=== PATIENT | female | born 1930 | race Hispanic/Latino ===

== ENCOUNTER 2018-08-22 11:31 | Emergency (ER) | payer MEDICARE ==
[2018-08-22 11:32] VITALS: BMI 21.7
--- NOTE | 2018-08-22 12:25 | ED PDOC ---
Arrival/HPI - General Historian: Patient - History of Present Illness Narrative History of Present Illness (Text): 08/22/18 16:11 88yo female with pmhx of GERD, dizziness, hypertension, CHF, Afib present with complaint of b/l leg pain and weakness. Patient reports falling earlier today. states she was dizzy and her legs was weak, so she fell. Notes previous history of fall last week. states she has been getting pain radiating from her thigh to her lower legs for over 3months now. Feels that the pain and weakness she have on her legs is causing her to fell. States she have appointment with her PMD on Friday, but came to ED today to be evaluated for her legs pain/weakness. She denies any acute injury/pain from the injury today. Denies hitting her head anywhere, LOC, visual changes, chest pain SOB, nausea, vomiting, focal weakness, any other complaint. <Janie Mckay - Last Filed: 08/22/18 16:25> <Liborio Joseph - Last Filed: 08/22/18 17:36> - General Chief Complaint: Lower Extremity Problem/Injury Time Seen by Provider: 08/22/18 11:58 Past Medical History - Provider Review Nursing Documentation Reviewed: Yes - Infectious Disease Hx of Infectious Diseases: None - Tetanus Immunization Tetanus Immunization: Up to Date - Cardiac Hx Cardiac Disorders: Yes Hx Cardiac Arrhythmia: Yes Hx Congestive Heart Failure: Yes Hx Hypertension: Yes - Pulmonary Hx Respiratory Disorders: No - Neurological Hx Neurological Disorder: Yes Hx Dizziness: Yes - HEENT Hx HEENT Disorder: Yes (WEARS RX GLASSES,LEFT EYE SURGERY) - Renal Hx Renal Disorder: No - Endocrine/Metabolic Hx Endocrine Disorders: No - Hematological/Oncological Hx Blood Disorders: No - Integumentary Hx Dermatological Disorder: No - Musculoskeletal/Rheumatological Hx Musculoskeletal Disorders: Yes Hx Falls: Yes - Gastrointestinal Hx Gastrointestinal Disorders: Yes Hx Gastroesophageal Reflux: Yes - Genitourinary/Gynecological Hx Genitourinary Disorders: No - Psychiatric Hx Psychophysiologic Disorder: Yes Hx Anxiety: Yes Hx Substance Use: No - Surgical History Hx Appendectomy: Yes Hx Cholecystectomy: Yes Hx Hysterectomy: Yes Hx Orthopedic Surgery: Yes (rt hip replacement) Hx Valve Replacement: Yes (aortic valve) - Anesthesia Hx Anesthesia: Yes Hx Anesthesia Reactions: No Hx Malignant Hyperthermia: No - Suicidal Assessment Feels Threatened In Home Enviroment: No <Diru,Happiness A - Last Filed: 08/22/18 16:25> Family/Social History - Physician Review Nursing Documentation Reviewed: Yes Family/Social History: Unknown Family HX Smoking Status: Never Smoked Hx Alcohol Use: No Hx Substance Use: No Hx Substance Use Treatment: No <Janie Mckay A - Last Filed: 08/22/18 16:25> Allergies/Home Meds <Janie Mckay A - Last Filed: 08/22/18 16:25> <TolericoAlexisLiborio - Last Filed: 08/22/18 17:36> Allergies/Adverse Reactions: Allergies iodine Allergy (Verified 08/22/18 11:49) RASH IV contrast Allergy (Uncoded 08/22/18 11:49) RASH Review of Systems - Physician Review All systems were reviewed & negative as marked: Yes - Review of Systems Constitutional: Normal Eyes: Normal ENT: Normal Respiratory: Normal Cardiovascular: Normal Gastrointestinal: Normal Genitourinary Female: Normal Musculoskeletal: Arthralgias (B/L leg pain) Skin: Normal Neurological: Dizziness Endocrine: Normal Hemo/Lymphatic: Normal Psychiatric: Normal <Janie Mckay A - Last Filed: 08/22/18 16:25> Physical Exam Vital Signs Reviewed: Yes Vital Signs Temp Pulse Resp BP Pulse Ox 08/22/18 11:50 98.9 F 93 H 16 155/84 H 97 Temperature: Afebrile Blood Pressure: Normal Pulse: Regular Respiratory Rate: Normal Appearance: Positive for: Well-Appearing, Non-Toxic, Comfortable Pain Distress: None Mental Status: Positive for: Alert and Oriented X 3 Finger Stick Blood Glucose: 105 - Systems Exam Head: Present: Atraumatic, Normocephalic Pupils: Present: PERRL Extroacular Muscles: Present: EOMI Conjunctiva: Present: Normal Mouth: Present: Moist Mucous Membranes Neck: Present: Normal Range of Motion Respiratory/Chest: Present: Clear to Auscultation, Good Air Exchange. No: Respiratory Distress, Accessory Muscle Use Cardiovascular: Present: Regular Rate and Rhythm, Normal S1, S2. No: Murmurs Abdomen: No: Tenderness, Distention, Peritoneal Signs Back: Present: Normal Inspection Upper Extremity: Present: Normal Inspection. No: Cyanosis, Edema Lower Extremity: Present: Normal Inspection, NORMAL PULSES, Normal ROM, Neurovascularly Intact. No: Edema, CALF TENDERNESS, Tori's Sign, Tenderness, Swelling, Erythema, Temperature Abnormalties Neurological: Present: GCS=15, CN II-XII Intact, Speech Normal, Motor Func Grossly Intact, Normal Sensory Function, Normal Cerebellar Funct, Norm Deep Tendon Reflexes, Gait Normal, Memory Normal, Normal 2Pt Descrimination, Other (No focal neurological deficit) Skin: Present: Warm, Dry, Normal Color. No: Rashes Psychiatric: Present: Alert, Oriented x 3, Normal Insight, Normal Concentration <Diru,Happiness A - Last Filed: 08/22/18 16:25> Vital Signs Temp Pulse Resp BP Pulse Ox 08/22/18 16:24 98.2 F 78 18 141/95 H 98 08/22/18 15:14 86 16 147/84 98 08/22/18 13:30 88 16 146/80 95 08/22/18 11:50 98.9 F 93 H 16 155/84 H 97 <Alexis Josephoper - Last Filed: 08/22/18 17:36> Medical Decision Making ED Course and Treatment: 08/22/18 16:35 88yo female who present with complaint of b/l lower leg pain/weakness x months. Labs was ordered and reviewed, all wnl EKG NSR @ 81bpm. NSTEMI Head CT - MPRESSION: No acute intracranial pathology. Age-related changes. No significant interval change. Doppler Us - Negative for DVT b/l PT was ambulatory in ED. She was neurologically intact. She was offered admission for OBS, but she declined. Case was DW Dr. Gambino, he also spoke with the pt and her son. she insisted that she don't wasn't to stay in the hospital. States she have appointment with Dr. Gambino and will see him then. She was stable for DC and was Dc home. - RAD Interpretation Radiology Orders: 08/22/18 11:59 HEAD W/O CONTRAST [CT] Stat 08/22/18 12:00 CHEST PORTABLE [RAD] Stat <Diru,Happiness A - Last Filed: 08/22/18 16:25> - Lab Interpretations Lab Results: 08/22/18 12:15 08/22/18 12:15 Lab Results 08/22/18 14:07: Urine Color Yellow, Urine Appearance Clear, Urine pH 6.0, Ur Specific [place] <= 1.005, Urine Protein Negative, Urine Glucose (UA) Negative, Urine Ketones Negative, Urine Blood Small H, Urine Nitrate Negative, Urine Bilirubin Negative, Urine Urobilinogen 0.2, Ur Leukocyte Esterase Negative, Urine RBC 0 - 2, Urine WBC 1 - 3, Ur Epithelial Cells 1 - 3, Urine Bacteria Few 08/22/18 12:15: Sodium 136, Potassium 4.9, Chloride 100, Carbon Dioxide 28, Anion Gap 13, BUN 20, Creatinine 1.1, Est GFR ( Amer) 57, Est GFR (Non-Af Amer) 47, Random Glucose 97, Calcium 9.7, Phosphorus 4.3, Magnesium 2.1, Total Bilirubin 0.4, AST 28, ALT 21, Alkaline Phosphatase 96, Lactate Dehydrogenase 585, Total Creatine Kinase 64, Troponin I < 0.01, Total Protein 7.7, Albumin 4.5, Globulin 3.1, Albumin/Globulin Ratio 1.4 08/22/18 12:15: PT 12.1, INR 1.05, APTT 30.8 08/22/18 12:15: WBC 8.6, RBC 3.90, Hgb 11.9 L, Hct 37.4, MCV 95.9, MCH 30.5, MCHC 31.8, RDW 13.6, Plt Count 222, MPV 10.6, Gran % 74.1 H, Lymph % (Auto) 17.1 L, Kings % (Auto) 7.6 H, Eos % (Auto) 0.7 L, Baso % (Auto) 0.5, Gran # 6.37, Lymph # (Auto) 1.5, Kings # (Auto) 0.7 H, Eos # (Auto) 0.1, Baso # (Auto) 0.04 - RAD Interpretation Radiology Orders: 08/22/18 11:59 HEAD W/O CONTRAST [CT] Stat 08/22/18 12:00 CHEST PORTABLE [RAD] Stat 08/22/18 13:51 DUPLEX LOWER EXTRM VEIN BILAT [US] Stat <Liborio Joseph - Last Filed: 08/22/18 17:36> - PA / LEATHER [employer]ISHER / Resident Statement /DO has reviewed & agrees with the documentation as recorded. <Liborio Joseph - Last Filed: 08/22/18 17:36> Disposition/Present on Arrival - Present on Arrival Any Indicators Present on Arrival: No History of DVT/PE: No History of Uncontrolled Diabetes: No Urinary Catheter: No History of Decub. Ulcer: No History Surgical Site Infection Following: None - Disposition Have Diagnosis and Disposition been Completed?: Yes Disposition Time: 16:15 Patient Plan: Discharge <Janie Mckay - Last Filed: 08/22/18 16:25> <Liborio Joseph - Last Filed: 08/22/18 17:36> - Disposition Diagnosis: Leg pain, Dizziness Disposition: HOME/ ROUTINE Condition: STABLE Discharge Instructions (ExitCare): Muscle and Bone Pain (DC), Dizziness, Nonvertigo, (DC) Additional Instructions: Follow up with your Doctor Return to ED for any new or worsening symptoms Referrals: Elsa Gambino MD [Family Provider] - Follow up with primary Forms: [employer] (Czech)
[2018-08-22 12:47] LABS: BASO # 0.04 K/mm3 (0.0-2.0); BASO % 0.5 % (0.0-3.0); EOS # 0.1 (0.0-0.7); EOS % 0.7 % (1.5-5.0); GRAN # 6.37 (1.4-6.5); GRAN % 74.1 % (50.0-68.0); HEMOGLOBIN 11.9 g/dL (12.0-16.0); LYMPH # 1.5 (1.2-3.4); LYMPH % 17.1 % (22.0-35.0); MEAN CELL VOLUME 95.9 fl (80.0-105.0); MEAN CORPUSCULAR HEMOGLOBIN 30.5 pg (25.0-35.0); MEAN CORPUSCULAR HGB CONC 31.8 g/dl (31.0-37.0); MEAN PLATELET VOLUME 10.6 fl (7.0-11.0); MONO # 0.7 (0.1-0.6); MONO % 7.6 % (1.0-6.0); RBC 3.9 10^6/uL (3.5-6.1); RED CELL DISTRIBUTION WIDTH 13.6 % (11.5-14.5); WHITE BLOOD COUNT 8.6 10^3/ul (4.5-11.0)
[2018-08-22 12:50] LABS: ALB/GLOB RATIO 1.4 (1.1-1.8); ALBUMIN 4.5 g/dL (3.0-4.8); ALT/SGPT 21 U/L (7-56); AST/SGOT 28 U/L (14-36); BLOOD UREA NITROGEN 20 mg/dL (7-21); CALCIUM 9.7 mg/dL (8.4-10.5); GFR NON-AFRICAN AMERICAN 47
[2018-08-22 12:52] LABS: INR 1.05; PARTIAL THROMBOPLASTIN TIME 30.8 Seconds (25.1-36.5); PROTHROMBIN TIME 12.1 SECONDS (9.4-12.5)
[2018-08-22 13:02] LABS: TROPONIN I < 0.01 ng/mL
--- NOTE | 2018-08-22 13:03 | CT ---
Date of service: 08/22/2018 PROCEDURE: CT HEAD WITHOUT CONTRAST. HISTORY: dizziness COMPARISON: CT head dated 09/30/2016 TECHNIQUE: Axial computed tomography images were obtained through the head/brain without intravenous contrast. Radiation dose: Total exam DLP = 816.6 mGy-cm. This CT exam was performed using one or more of the following dose reduction techniques: Automated exposure control, adjustment of the mA and/or kV according to patient size, and/or use of iterative reconstruction technique. FINDINGS: HEMORRHAGE: No intracranial hemorrhage. BRAIN: No mass effect or edema. Atrophy. Chronic microvascular ischemic changes. VENTRICLES: Unremarkable. No hydrocephalus. CALVARIUM: Unremarkable. PARANASAL SINUSES: Unremarkable as visualized. No significant inflammatory changes. MASTOID AIR CELLS: Unremarkable as visualized. No inflammatory changes. OTHER FINDINGS: None. IMPRESSION: No acute intracranial pathology. Age-related changes. No significant interval change.
--- NOTE | 2018-08-22 13:34 | RAD ---
Date of service: 08/22/2018 HISTORY: for admission COMPARISON: Chest radiograph dated 09/25/2015. FINDINGS: LUNGS: No active pulmonary disease. PLEURA: No significant pleural effusion identified, no pneumothorax apparent. CARDIOVASCULAR: Prior sternotomy with sternal wires and surgical clips redemonstrated. Atherosclerotic aortic calcifications. Cardiomediastinal silhouette within normal limits. OSSEOUS STRUCTURES: Unchanged. VISUALIZED UPPER ABDOMEN: Normal. OTHER FINDINGS: None. IMPRESSION: Manifestations of COPD. No active disease.
[2018-08-22 15:11] LABS: URINE BILIRUBIN NEGATIVE (NEGATIVE); URINE BLOOD SMALL (NEGATIVE); URINE GLUCOSE (UA) NEGATIVE (NEGATIVE); URINE LEUKOCYTE ESTERASE NEGATIVE Leu/uL (NEGATIVE); URINE PROTEIN NEGATIVE mg/dL (<30 mg/dL); URINE UROBILINOGEN 0.2 E.U./dL (<1 E.U./dL)
[2018-08-22 15:15] VITALS: O2SAT 98
[2018-08-22 15:27] LABS: URINE APPEARANCE CLEAR (CLEAR); URINE COLOR YELLOW (YELLOW)
[2018-08-22 15:34] LABS: URINE BACTERIA FEW (NEG); URINE RBC 0 - 2 /hpf (0-2)
[2018-08-22 16:24] VITALS: BP 141/95; PULSE 78; RESP 18; TEMP 98.2
--- NOTE | 2018-08-23 09:04 | CARD ---
APPROVED REPORT Date of service: 08/22/2018 EKG Measurement Heart [id number] <Conclusion> Normal sinus rhythm Normal ECG No change except no PVCs now, c/w ECG 01/20/17
--- NOTE | 2018-08-23 15:50 | US ---
HISTORY: Leg pain and swelling. Evaluate for DVT PHYSICIAN(S): Dc Davila MD. TECHNIQUE: Duplex sonography and color-flow Doppler with graded compression were used to evaluate the deep venous systems of both lower extremities. FINDINGS: The visualized deep venous systems of both lower extremities are sonographically normal and compressible. Normal wave forms and augmentation are seen. There is no sonographic evidence for deep venous thrombosis in the visualized segments of both lower extremities. IMPRESSION: No sonographic evidence for deep venous thrombosis in the visualized segments of both lower extremities.
== END 2018-08-22 16:24 | disposition home or self-care (01) ==
LOC: ED 11:31
DX: M79.605 Pain in left leg (principal); M79.604 Pain in right leg; R42 Dizziness and giddiness; I11.0 Hypertensive heart disease with heart failure; I48.91 Unspecified atrial fibrillation; I50.9 Heart failure, unspecified; Z95.2 Presence of prosthetic heart valve; Z96.641 Presence of right artificial hip joint

== ENCOUNTER 2018-08-25 08:32 | Inpatient (IN) | payer MEDICARE ==
[2018-08-25 08:44] VITALS: BMI 20.7
--- NOTE | 2018-08-25 08:58 | ED PDOC ---
Arrival/HPI - General Chief Complaint: Lower Extremity Problem/Injury Time Seen by Provider: 08/25/18 08:39 Historian: Patient - History of Present Illness Narrative History of Present Illness (Text): 08/25/18 08:42 88 year old female, whose past medical history includes GERD, dizziness, hypertension, CHF, and Afib, who presents to the Emergency department complaining of dizzy spells on and off for about 1 week and a half, and intermittent bilateral leg pain for about 3 months with frequent falls. Patient was seen in emergency department 3 days ago on 08/22/18, had negative CT done and negative doppler done, with normal blood/urine testing. Patient refused admission during that visit [address] Dr. Gambino yesterday. Spoke to Dr. Gambino this morning, who was just requesting blood work and left knee X- Ray. Never smoker, occasional beer. Time/Duration: < week (dizzy spells on and off for about 1 week and a half), < month (intermittent bilateral leg pain for about 3 months, with frequent falls) Symptom Onset: Sudden Symptom Course: Unchanged Activities at Onset: Light Associated Symptoms (Text): 08/25/18 09:09 Seen in the emergency department 3 days ago with the complaint of dizziness occurring for approximately 10 days. She complains of bilateral lower extremity pain for several months. She had a negative workup in the emergency department 3 days ago including Doppler and CT scan of the brain. She was seen by her PMD Dr. Gambino yesterday and directed to the emergency department for full admission today with the plan of placing her in rehabilitation. Past Medical History - Provider Review Nursing Documentation Reviewed: Yes - Infectious Disease Hx of Infectious Diseases: None - Tetanus Immunization Tetanus Immunization: Up to Date - Cardiac Hx Cardiac Disorders: Yes Hx Cardiac Arrhythmia: Yes Hx Congestive Heart Failure: Yes Hx Hypertension: Yes - Pulmonary Hx Respiratory Disorders: No - Neurological Hx Neurological Disorder: Yes Hx Dizziness: Yes - HEENT Hx HEENT Disorder: Yes (WEARS RX GLASSES,LEFT EYE SURGERY) - Renal Hx Renal Disorder: No - Endocrine/Metabolic Hx Endocrine Disorders: No - Hematological/Oncological Hx Blood Disorders: No - Integumentary Hx Dermatological Disorder: No - Musculoskeletal/Rheumatological Hx Musculoskeletal Disorders: Yes Hx Falls: Yes - Gastrointestinal Hx Gastrointestinal Disorders: Yes Hx Gastroesophageal Reflux: Yes - Genitourinary/Gynecological Hx Genitourinary Disorders: No - Psychiatric Hx Psychophysiologic Disorder: Yes Hx Anxiety: Yes Hx Substance Use: No - Surgical History Hx Appendectomy: Yes Hx Cholecystectomy: Yes Hx Hysterectomy: Yes Hx Open Heart Surgery: Yes Hx Orthopedic Surgery: Yes (rt hip replacement) Hx Valve Replacement: Yes (aortic valve) - Anesthesia Hx Anesthesia: Yes Hx Anesthesia Reactions: No Hx Malignant Hyperthermia: No - Suicidal Assessment Feels Threatened In Home Enviroment: No Family/Social History - Physician Review Nursing Documentation Reviewed: Yes Family/Social History: Unknown Family HX Smoking Status: Never Smoked Hx Alcohol Use: No Hx Substance Use: No Hx Substance Use Treatment: No Allergies/Home Meds Allergies/Adverse Reactions: Allergies iodine Allergy (Verified 08/25/18 08:44) RASH IV contrast Allergy (Uncoded 08/25/18 08:44) RASH Review of Systems - Physician Review All systems were reviewed & negative as marked: Yes - Review of Systems Constitutional: Normal. absent: Fatigue, Fevers Eyes: Normal ENT: Normal Respiratory: Normal. absent: SOB, Cough Cardiovascular: Normal. absent: Chest Pain, Palpitations, Syncope Gastrointestinal: absent: Abdominal Pain, Nausea, Vomiting Musculoskeletal: Other (intermittent bilateral leg pain for about 3 months, with frequent falls). absent: Normal Neurological: Dizziness (dizzy spells on and off for about 1 week and a half). absent: Normal, Headache, Focal Weakness Physical Exam Vital Signs Reviewed: Yes Vital Signs Temp Pulse Resp BP Pulse Ox 08/25/18 08:48 98.1 F 85 18 168/79 H 100 Temperature: Afebrile Blood Pressure: Hypertensive Pulse: Regular Respiratory Rate: Normal Appearance: Positive for: Well-Appearing, Non-Toxic, Comfortable Pain Distress: None Mental Status: Positive for: Alert and Oriented X 3 - Systems Exam Head: Present: Atraumatic, Normocephalic Pupils: Present: PERRL Extroacular Muscles: Present: EOMI Conjunctiva: Present: Normal Mouth: Present: Moist Mucous Membranes Pharnyx: No: ERYTHEMA, EXUDATE, TONSILS ENLARGED Neck: Present: Normal Range of Motion Respiratory/Chest: Present: Clear to Auscultation, Good Air Exchange. No: Respiratory Distress, Accessory Muscle Use Cardiovascular: Present: Regular Rate and Rhythm, Normal S1, S2. No: Murmurs Abdomen: No: Tenderness, Distention, Peritoneal Signs, Rebound, Guarding Back: Present: Normal Inspection Upper Extremity: Present: Normal Inspection. No: Cyanosis, Edema Lower Extremity: Present: Normal Inspection. No: Edema Neurological: Present: GCS=15, CN II-XII Intact, Speech Normal, Motor Func Grossly Intact, Normal Sensory Function, Normal Cerebellar Funct Skin: Present: Warm, Dry, Normal Color. No: Rashes Psychiatric: Present: Alert, Oriented x 3, Normal Insight, Normal Concentration Medical Decision Making ED Course and Treatment: 08/25/18 08:42 Impression: 88 year old female presents to the emergency department for dizzy spells on and off for about 1 week and a half, and intermittent bilateral leg pain for about 3 months with frequent falls. Differential Diagnosis included but are not limited to: Plan: -- EKG -- Labs -- X-Ray of left knee, 2 views (AP & LAT) -- Reassess and disposition Prior Visits: Notes and results from previous visits were reviewed. Patient was last seen in the emergency department on 08/22/18 with complaint of b/l leg pain and weakness. Patient was discharged home, diagnosed with leg pain and dizziness, directed to follow up with PMD and instructed to return to emergency department for any new or worsening symptoms. Progress Notes: 08/25/18 08:[address] Gambino, who was just requesting blood work and left knee X-Ray. Dr. Gambino also wants her to have full admission because plan is to put her in rehab. 08/25/18 09:12 EKG shows normal sinus rhythm rate approximately [address] or T-wave changes. 08/25/18 11:06 Dr. Gambino is here and requests consults with cardiology orthopedics and neurology. 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 I have reviewed the chart and agree that the record accurately reflects my personal performance of the history, physical exam, medical decision making, and the department course for this patient. I have also personally directed, reviewed, and agree with the discharge instructions and disposition. Disposition/Present on Arrival - Present on Arrival Any Indicators Present on Arrival: No History of DVT/PE: No History of Uncontrolled Diabetes: No Urinary Catheter: No History of Decub. Ulcer: No History Surgical Site Infection Following: None - Disposition Have Diagnosis and Disposition been Completed?: Yes Diagnosis: Dizziness, Weakness, Hypertension, Leg pain Disposition: HOSPITALIZED Disposition Time: 09:59 Patient Plan: Admission Patient Problems: Current Active Problems Problem Status Onset Dizziness Acute Hypertension Acute Leg pain Acute Weakness Acute Condition: GOOD
[2018-08-25 09:44] LABS: BASO # 0.03 K/mm3 (0.0-2.0); BASO % 0.4 % (0.0-3.0); EOS # 0.1 (0.0-0.7); EOS % 0.7 % (1.5-5.0); GRAN # 6.38 (1.4-6.5); GRAN % 78.2 % (50.0-68.0); HEMOGLOBIN 11.2 g/dL (12.0-16.0); LYMPH % 11.6 % (22.0-35.0); MEAN CELL VOLUME 95.3 fl (80.0-105.0); MEAN CORPUSCULAR HEMOGLOBIN 30.8 pg (25.0-35.0); MEAN CORPUSCULAR HGB CONC 32.3 g/dl (31.0-37.0); MEAN PLATELET VOLUME 10.4 fl (7.0-11.0); MONO # 0.7 (0.1-0.6); MONO % 9.1 % (1.0-6.0); RBC 3.64 10^6/uL (3.5-6.1); RED CELL DISTRIBUTION WIDTH 13.4 % (11.5-14.5); WHITE BLOOD COUNT 8.2 10^3/ul (4.5-11.0)
[2018-08-25 09:49] LABS: ALB/GLOB RATIO 1.5 (1.1-1.8); ALBUMIN 4.2 g/dL (3.0-4.8); CALCIUM 9.1 mg/dL (8.4-10.5)
[2018-08-25 10:01] LABS: TROPONIN I 0.02 ng/mL
--- NOTE | 2018-08-25 10:08 | RAD ---
Date of service: 08/25/2018 PROCEDURE: Left Knee Radiographs. HISTORY: Pain. COMPARISON: None. FINDINGS: BONES: Normal. No fracture. JOINTS: There is severe joint space narrowing in the medial compartment. There is also osteophyte formation. JOINT EFFUSION: None. OTHER FINDINGS: None. IMPRESSION: There is severe joint space narrowing in the medial compartment. There is also osteophyte formation.
--- NOTE | 2018-08-25 11:23 | CARD ---
APPROVED REPORT Date of service: 08/25/2018 EKG Measurement Heart [id number] <Conclusion> Normal sinus rhythm Normal ECG
[2018-08-25] MEDS ORDERED: Triamcinolone Acetonide 40 mg/mL Inj IAA ONE (16:13)
[2018-08-25] MEDS ORDERED: Bupivacaine 0.5% Inj(30mL) INJ STA (16:19)
--- NOTE | 2018-08-26 00:41 | CON ---
DATE: 08/25/2018 HISTORY OF PRESENT ILLNESS: This is an 88-year-old white female with past medical history of hypertension, CHF, AFib. Came to the hospital on Friday with dizziness and the patient felt dizzy while she is ambulating or in motion, but no dizziness while sitting or lying down. No nausea. No vomiting. Called to evaluate the patient. No numbness, tingling in arms, legs or face. No headache. PAST MEDICAL HISTORY: Hypertension, CHF, AFib, GERD. ALLERGIES: ALLERGIC TO IODINE AND IV CONTRAST. PHYSICAL EXAMINATION: VITAL SIGNS: Blood pressure 168/79. HEENT: Normocephalic, atraumatic. NECK: Supple. NEUROLOGIC: Awake, alert, orientated to self and place. Cranial nerves II through XII were tested. Pupils reactive. EOM intact. Visual field full. No facial asymmetry. Tongue midline. Motor examination: Moves all the extremities spontaneously. Deep tendon reflexes 1+. Both plantars are downgoing. Sensory appears intact. Cerebellar gait normal. IMPRESSION: Vertigo and possibly rule out vertebrobasilar ischemia or benign positional vertigo. CAT scan of the head was done, which was negative. The patient also had pain in both the knees, which she got injection from Dr. Price. Workup in progress. Continue present management. We will follow up. We can give meclizine 25 mg p.o. every 8 hours p.r.n. Ney Amador MD
--- NOTE | 2018-08-26 08:06 | CP.PCM.CON ---
History of Present Illness - History of Present Illness History of Present Illness: Awake, alert, oriented,complaints of knee pain Reason for consultation: Cardiac evaluation of dizziness, history of hypertension, aortic valve replacement, CHF, and Afib, Brief history of present illness: An 88 year old female who came in to the ER due to dizziness off and on for about a week and a half. She complains of knee pain. Denies chest pain or shortness of breath. History of hypertension, aortic valve replacement, CHF, and Afib, GERD, dizziness, right hip replacement,hysterectomy,cholecystectomy, left eye surgery. Seen and examined by me and Dr. Marques Review of Systems - Review of Systems All systems: reviewed and no additional remarkable complaints except Review of Systems: as per HPI Past Patient History - Infectious Disease Hx of Infectious Diseases: None - Tetanus Immunizations Tetanus Immunization: Up to Date - Past Social History Smoking Status: Never Smoked - CARDIAC Hx Cardiac Disorders: Yes Hx Cardia Arrhythmia: Yes Hx Congestive Heart Failure: Yes Hx Hypertension: Yes Other/Comment: Open herat surgery/ aortic valve replacement - PULMONARY Hx Respiratory Disorders: No - NEUROLOGICAL Hx Neurological Disorder: No - HEENT Hx HEENT Problems: Yes Other/Comment: left eye surgery - RENAL Hx Chronic Kidney Disease: No - ENDOCRINE/METABOLIC Hx Endocrine Disorders: No - HEMATOLOGICAL/ONCOLOGICAL Hx Blood Disorders: No - INTEGUMENTARY Hx Dermatological Problems: No - MUSCULOSKELETAL/RHEUMATOLOGICAL Hx Musculoskeletal Disorders: Yes Hx Falls: Yes Other/Comment: right hip replacement - GASTROINTESTINAL Hx Gastrointestinal Disorders: No - GENITOURINARY/GYNECOLOGICAL Hx Genitourinary Disorders: Yes Other/Comment: hsterectomy - PSYCHIATRIC Hx Psychophysiologic Disorder: No - SURGICAL HISTORY Hx Surgeries: Yes Hx Cholecystectomy: Yes - ANESTHESIA Hx Anesthesia: Yes Hx Anesthesia Reactions: No Hx Malignant Hyperthermia: No Meds Allergies/Adverse Reactions: Allergies Allergy/AdvReac Type Severity Reaction Status Date / Time iodine Allergy RASH Verified 08/25/18 08:44 IV contrast Allergy RASH Uncoded 08/25/18 08:44 - Medications Medications: Current Medications Meclizine HCl (Antivert) 25 mg PO Q8H [facility] Last Admin: 08/26/18 05:33 Dose: 25 mg Physical Exam - Constitutional Appears: Non-toxic, No Acute Distress - Eye Exam Eye Exam: Normal appearance - ENT Exam ENT Exam: Mucous Membranes Moist - Respiratory Exam Respiratory Exam: Decreased Breath Sounds, Clear to Auscultation Bilateral, NORMAL BREATHING PATTERN - Cardiovascular Exam Cardiovascular Exam: Irregular Rhythm, +S1, +S2 Additional comments: 80-90's/min denies chest pain, denies shortness of breath - GI/Abdominal Exam GI & Abdominal Exam: Normal Bowel Sounds, Soft - Extremities Exam Additional comments: left knee swelling - Neurological Exam Neurological exam: Alert, Oriented x3 - Psychiatric Exam Psychiatric exam: Normal Affect, Normal Mood - Skin Skin Exam: Intact, Normal Color, Warm Results - Vital Signs Recent Vital Signs: Last Vital Signs Temp 97.7 F 08/26/18 07:30 Pulse 85 08/26/18 07:30 Resp 20 08/26/18 07:30 BP 119/75 08/26/18 07:30 Pulse Ox 98 08/26/18 07:30 - Labs Result Diagrams: 08/25/18 09:05 08/25/18 09:05 Labs: Laboratory Results - last 24 hr 08/25/18 08/25/18 09:05 09:05 WBC 8.2 RBC 3.64 Hgb 11.2 L Hct 34.7 L MCV 95.3 MCH 30.8 MCHC 32.3 RDW 13.4 Plt Count 210 MPV 10.4 Gran % 78.2 H Lymph % (Auto) 11.6 L Gilliam % (Auto) 9.1 H Eos % (Auto) 0.7 L Baso % (Auto) 0.4 Gran # 6.38 Lymph # (Auto) 1.0 L Gilliam # (Auto) 0.7 H Eos # (Auto) 0.1 Baso # (Auto) 0.03 Sodium 137 Potassium 4.2 Chloride 101 Carbon Dioxide 27 Anion Gap 14 BUN 22 H Creatinine 1.2 Est GFR ( Amer) 51 Est GFR (Non-Af Amer) 42 Random Glucose 111 H Calcium 9.1 Magnesium 2.1 Total Bilirubin 0.5 AST 28 ALT 21 Alkaline Phosphatase 77 Lactate Dehydrogenase 545 Total Creatine Kinase 120 Troponin I 0.02 D Total Protein 7.0 Albumin 4.2 Globulin 2.8 Albumin/Globulin Ratio 1.5 Assessment & Plan - Assessment and Plan (Free Text) Assessment: An 88 year old female who came in to the ER due to dizziness off and on for about a week and a half. She complains of knee pain. Denies chest pain or shortness of breath. History of hypertension, aortic valve replacement, CHF, and Afib, GERD, dizziness, right hip replacement,hysterectomy,cholecystectomy, left eye surgery. Orthostatic vital signs to rule out hypotension,Echo to evaluate LV function. Previous cardiac work up at [facility] [place]07/13- Normal stress test LVEF 76 % 07/12/15-ECHO -LVEF 65-70%, no vegetations on prosthetic aortic valve trace MR/TR RVSP 41 mmHg Plan: For ECHO to evaluate LV function Denies chest pain Denies shortness of breath Orthostatic vital signs to rule out hypotension Continue current treatment Continue current medications chart reviewed Will follow up further recommendations during hospital course Plan and treatment discussed with Dr. Marques Thank you Dr. Gambino for the opportunity of taking care of Ms. Yaritza Gonzalez - Date & Time Date: 08/26/18 Time: 06:35
--- NOTE | 2018-08-26 08:45 | HP ---
HISTORY OF PRESENT ILLNESS: An 88-year-old female, referred to [facility] for history of falls and gait disorder and dizziness. The patient has had several falls over the last several weeks and has difficulty walking. She also states that she has been having periods of lightheadedness. PAST MEDICAL HISTORY: She has a past medical history of valvular heart disease with aortic valve surgery, history of paroxysmal atrial fibrillation, history of right hip surgery, history of degenerative arthritis, history of gastroesophageal reflux disease. ALLERGIES: SHE HAS AN ALLERGY TO IODINE AND IV CONTRAST. MEDICATIONS: She has home medications of Norvasc 5 mg daily and Ecotrin 81 mg daily. SOCIAL HISTORY: She is a nonsmoker, nondrinker, non drug user. REVIEW OF SYSTEMS: Ten systems are reviewed. Pertinent findings as noted in the physical exam. PHYSICAL EXAMINATION: VITAL SIGNS: She has got a temp of 98, pulse of 85, blood pressure 168/79, respiratory rate 18, oxygen saturation 100% on room air. GENERAL: She is alert and oriented x3. NECK: Supple. No JVD. LUNGS: Clear. HEART: An S1 and S2 rhythm. ABDOMEN: Soft with positive bowel sounds. EXTREMITIES: Show swelling of the left knee with tenderness. No evidence of edema. LABORATORY DATA: She has a WBC of 8.2, RBC of 3.64, hemoglobin 11.2, hematocrit 34.7, platelet count 210. Chemistry of normal electrolytes. The BUN is 22, creatinine 1.2, random blood sugar is 111, troponin is 0.02. Normal LFTs. The albumin is 4.2. She had an x-ray of the left knee, which showed degenerative changes. An electrocardiogram showed evidence of sinus rhythm. IMPRESSION: Elderly female with, 1. Periods of multiple falls. 2. Gait disorder. 3. Dizziness. 4. History of valvular heart disease. 5. History of paroxysmal atrial fibrillation. PLAN: To admit the patient for neurological and orthopedic evaluation as well as cardiac evaluation. Elsa Gambino MD
--- NOTE | 2018-08-26 13:26 | PN ---
DATE: 08/26/2018 SUBJECTIVE: The patient is resting in bed comfortably this morning. She is being evaluated for dizziness, unsteady gait, and is currently being seen by Ortho, Neurology and Cardiology. PHYSICAL EXAMINATION: VITAL SIGNS: Show a temperature of 97.7, the blood pressure is 119/75 , oxygen saturation is 98% on room air, respiratory rate is 20. GENERAL: She is alert and oriented x3. NECK: Supple. No JVD. LUNGS: Clear. HEART: S1 and S2 rhythm. ABDOMEN: Soft with positive bowel sounds. EXTREMITIES: Show no evidence of edema. Evaluation is currently underway. Neurology has placed the patient on Antivert. She is taking her Norvasc and Ecotrin. Orthopedic has injected the left knee for aggressive degenerative arthritis. We will continue current level of care. Requests a physical and occupational therapy evaluation. The patient is aware of all the clinical findings today. Elsa Gambino MD
--- NOTE | 2018-08-26 16:18 | CON ---
DATE: 08/26/2018 REASON FOR CONSULTATION: Cardiac evaluation, history of AVR, history of paroxysmal atrial fibrillation, admitted with dizziness, about to fall as the knee also gave up. BRIEF HISTORY: An 88-year-old female with past medical history significant for severe aortic stenosis, status post aortic valve replacement, paroxysmal atrial fibrillation, now in normal sinus, status post ANDERS cardioversion. At one point, the patient was on amiodarone, but held it because of the toxicity. Now, the patient is off beta-jarrett, only amlodipine. Beta-jarrett is off because the patient was bradycardic, history of chronic dizziness. Admitted with dizziness and history of some problem with left knee meniscus, status post Intra articular injection ,yesterday, now feels better. The plan is to check orthostatic blood pressure and if remained stable, possibly discharge home soon. The patient was at one point on meclizine also. For now, we will resume the blood pressure medication, back on Norvasc and aspirin. We will start noninvasive holding parameter, hold for blood pressure less than 130 and we will check the orthostatic also. Thank you, Dr. Gambino, for providing us the opportunity in taking care of the patient, Yaritza Gonzalez. This dictation is in addition to consult dictated by our nurse practitioner, Val Thmopson APN. Ciara Marques MD IAN
--- NOTE | 2018-08-26 16:59 | CARD ---
APPROVED REPORT Date of service: 08/26/2018 EXAM: Two-dimensional and M-mode echocardiogram with Doppler and color Doppler. INDICATION LVFX 2D DIMENSIONS Left Atrium (2D)4.1 (1.6-4.0cm)IVSd1.0 (0.7-1.1cm) LVDd4.3 (3.9-5.9cm)PWd1.2 (0.7-1.1cm) LVDs2.5 (2.5-4.0cm)FS (%) 42.9 % LVEF (%)74.3 (>50%) M-Mode DIMENSIONS Aortic Root3.30 (2.2-3.7cm)Aortic Cusp Exc.1.20 (1.5-2.0cm) Aortic Valve AoV Peak Gozsenjk223.0cm/sAoV VTI48.2cmAO Peak GR.23mmHg AO Mean GR.13mmHg Mitral Valve MV E Itlcxhng068.0cm/sMV A Rooilzji542.0cm/sE/A ratio0.8 TDI Lateral E' Peak V8.38cm/sMedial E' Peak V4.97cm/sE/Lateral E'12.5 E/Medial E'21.1 Pulmonary Valve PV Peak Zizsfoiq844.0cm/sPV Peak Grad.5mmHg Tricuspid Valve TR Peak Ketzkvrs121ji/sRAP VZYHLCHI67twJgXM Peak Gr.35mmHg [id number] LEFT VENTRICLE The left ventricle is normal size. There is borderline to mild concentric left ventricular hypertrophy. The left ventricular function is normal.[id number] There is normal LV segmental wall motion. Transmitral Doppler flow pattern is Grade III-reversible restrictive diastolic dysfunction. No left ventricle thrombus noted on this study. There is no ventricular septal defect visualized. There is no left ventricular aneurysm. There is no mass noted in the left ventricle. RIGHT VENTRICLE The right ventricle is normal size. There is normal right ventricular wall thickness. The right ventricular systolic function is normal. ATRIA The left atrium is borderline dilated. The right atrium size is normal. The interatrial septum is intact with no evidence for an atrial septal defect. AORTIC VALVE There are no vegetations on this prosthetic aortic valve. There is a bioprosthetic aortic valve prosthesis. MITRAL VALVE The mitral valve is thickened but opens well. Mitral annular calcification is moderate. Mitral regurgitation is mild. There is no mitral valve stenosis. There is no evidence of mitral valve prolapse. TRICUSPID VALVE The tricuspid valve leaflets are thickened , but open well. There is mild tricuspid regurgitation.RVSP-45 mmof hg. There is no tricuspid valve stenosis. There is no tricuspid valve prolapse or vegetation. PULMONIC VALVE The pulmonary valve is normal in structure. There is trace to mild pulmonic valvular regurgitation. There is no pulmonic valvular stenosis. GREAT VESSELS The aortic root is normal in size. The ascending aorta is normal in size. The pulmonary artery is normal. The IVC is normal in size and collapses >50% with inspiration. PERICARDIAL EFFUSION There is no pleural effusion. There is no pericardial effusion. <Conclusion> The left ventricle is normal size. There is borderline to mild concentric left ventricular hypertrophy. The left ventricular function is normal.[id number] There are no vegetations on this prosthetic aortic valve. There is a bioprosthetic aortic valve prosthesis. Mitral regurgitation is mild. There is mild tricuspid regurgitation.RVSP-45 mmof hg. The IVC is normal in size and collapses >50% with inspiration. There is no pericardial effusion.
--- NOTE | 2018-08-26 21:04 | CON ---
DATE: 08/25/2018 INPATIENT CONSULTATION REASON FOR CONSULT: Left knee pain. Consult is as follows, HISTORY OF PRESENT ILLNESS: This is an 88-year-old female who was admitted to the hospital with complaints of dizziness and weakness. Patient states that she has had multiple falls in the last several weeks. She has a history of having right knee problems and many years ago surgery was recommended but because of her cardiac condition, she did not have surgery. She states that she is able to bear weight on it until the pain mostly on the inside part of her knee. She denies any numbness or tingling going down the leg. PHYSICAL EXAMINATION: GENERAL: This is an elderly female in no apparent distress. She is awake, alert and oriented x3. Her affect is pleasant and improved. EXTREMITIES: Evaluation of left knee shows no significant effusion. She is able to extend and flex her knee for approximately 0 to 105 to 110 degrees. She had significant medial joint line tenderness to palpation. She also has some pain with patellofemoral grind. She is grossly stable with varus, valgus stress. She has 5/5 strength with both knee flexion and extension. Her thigh and calf is soft and nontender. Grossly, she is neurovascularly intact. LABORATORY DATA: X-rays of the left knee show no obvious fractures or dislocations but advanced degenerative joint disease with complete medial compartment narrowing and severe patellofemoral degenerative changes as well. IMPRESSION: Left knee arthritis. PLAN: We discussed the treatment options, including nonsurgical and surgical management alternatively. I feel that knee replacement would most reliably give her the best long-term full relief. For now, she does not want any surgery but she would like to try steroid injection to see if this will give her some temporary relief. The risks and benefits were discussed and she wants to proceed. The left knee was prepped sterilely. Approximately 40 mg of Kenalog plus 2 mL of Marcaine was injected. She tolerated the procedure well. We are going, for now, let her weightbear as tolerated. Recommend the use of a walker and she will follow up as an outpatient. Joseph Price MD
--- NOTE | 2018-08-27 08:05 | CP.PCM.PN ---
Subjective - Date & Time of Evaluation Date of Evaluation: 08/27/18 Time of Evaluation: 07:05 - Subjective Subjective: Awake, alert, denies dizziness,denies chest pain Reason for consultation: Cardiac evaluation of dizziness, history of hypertension, aortic valve replacement, CHF, and Afib, Seen and examined by me and Dr. Marques Objective - Vital Signs/Intake and Output Vital Signs (last 24 hours): Temp Pulse Resp BP Pulse Ox 98.4 F 78 18 146/83 98 08/27/18 06:00 08/27/18 06:00 08/27/18 06:00 08/27/18 06:00 08/27/18 06:00 Intake and Output: 08/27/18 08/27/18 06:59 18:59 Intake Total 900 Output Total 300 Balance 600 - Medications Medications: Current Medications Amlodipine Besylate (Norvasc) 5 mg PO DAILY [facility] Last Admin: 08/26/18 09:56 Dose: 5 mg Aspirin (Aspirin Chewable) 81 mg PO DAILY [facility] Last Admin: 08/26/18 09:56 Dose: 81 mg Meclizine HCl (Antivert) 25 mg PO Q8H [facility] Last Admin: 08/27/18 04:33 Dose: Not Given - Labs Labs: 08/25/18 09:05 08/25/18 09:05 - Constitutional Appears: Non-toxic, No Acute Distress - Eye Exam Eye Exam: Normal appearance - ENT Exam ENT Exam: Mucous Membranes Moist - Respiratory Exam Respiratory Exam: Decreased Breath Sounds, Clear to Ausculation Bilateral, NORMAL BREATHING PATTERN - Cardiovascular Exam Cardiovascular Exam: REGULAR RHYTHM, +S1, +S2 - GI/Abdominal Exam GI & Abdominal Exam: Soft, Normal Bowel Sounds - Extremities Exam Extremities Exam: Normal Capillary Refill Additional comments: left knee pain/swelling - Neurological Exam Neurological Exam: Alert, Awake, Oriented x3 - Psychiatric Exam Psychiatric exam: Normal Affect, Normal Mood - Skin Skin Exam: Dry, Intact, Normal Color, Warm Assessment and Plan - Assessment and Plan (Free Text) Assessment: An 88 year old female who came in to the ER due to dizziness off and on for about a week and a half. She complains of knee pain. Denies chest pain or shortness of breath. History of hypertension, aortic valve replacement, CHF, and Afib, GERD, dizziness, right hip replacement,hysterectomy,cholecystectomy, left eye surgery. Orthostatic vital signs to rule out hypotension,Echo to evaluate LV function. Previous cardiac work up at [facility] [place] 06/07/13- Normal stress test LVEF 76 % 07/12/15-ECHO -LVEF 65-70%, no vegetations on prosthetic aortic valve Plan: ECHO done -Left ventricle normal size, LVEF 65-70%, no vegetation on bioprosthetic aortic valve, Mild MR, Mild TR RVSP45 mmHg no pericardial effusion. Orthostatic vital signs pending Denies chest pain Denies shortness of breath Heart rate and blood pressure controlled On Norvasc 5 mg daily,ASA 81 mg daily,Antivert 25 mg every 8 hours Continue current treatment Continue current medications Chart reviewed Will follow up Plan and treatment discussed with Dr. Jerald Helms
--- NOTE | 2018-08-27 23:57 | PN ---
DATE: 08/27/2018 REASON FOR CONSULTATION: Dizziness, history of status post AVR, paroxysmal atrial fibrillation. SUBJECTIVE: Admitted with dizziness. No further episode of arrhythmia noted. The patient is in sinus rhythm. Family is at the bedside. RECOMMENDATIONS: We will continue baby aspirin, continue amlodipine and continue meclizine as per neurologist. Ambulate, possibly discharge home tomorrow. Discussed with the patient's family. We will follow with you. Thank you, , for providing us the opportunity in taking care of the patient, Yaritza Gonzalez. Caira Marques MD
--- NOTE | 2018-08-28 00:40 | PN ---
DATE: 08/27/2018 SUBJECTIVE: This is an 88-year-old female. Nursing staff relates to no particular problems during the night. PHYSICAL EXAMINATION: GENERAL: The patient is alert and oriented x3. VITAL SIGNS: Temperature is 98.3, pulse is 84, blood pressure is 146/83, oxygen saturation is 98% on room air. NECK: Supple. No JVD. HEART: S1 and S2 rhythm. ABDOMEN: Soft, scaphoid, positive bowel sounds. EXTREMITIES: Showed no evidence of edema. ASSESSMENT AND PLAN: The patient has been followed by Cardiology, Orthopedics, and Neurology for complaints of dizziness and unsteady gait. Continue current level of care. Await input from Cardiology and Neurology. Elsa Gambino MD
--- NOTE | 2018-08-28 07:09 | CP.PCM.PN ---
Subjective - Date & Time of Evaluation Date of Evaluation: 08/28/18 Time of Evaluation: 06:25 - Subjective Subjective: Awake, alert, denies dizziness at rest, dizziness when walking, denies chest pain Reason for consultation: Cardiac evaluation of dizziness, history of hypertension, aortic valve replacement, CHF, and Afib, Seen and examined by me and Dr. Marques Objective - Vital Signs/Intake and Output Vital Signs (last 24 hours): Temp Pulse Resp BP Pulse Ox 97 F L 86 18 120/65 98 08/27/18 22:57 08/27/18 22:57 08/27/18 22:57 08/27/18 22:57 08/27/18 22:57 Intake and Output: 08/28/18 08/28/18 06:59 18:59 Intake Total 120 Balance 120 - Medications Medications: Current Medications Amlodipine Besylate (Norvasc) 5 mg PO DAILY [facility] Last Admin: 08/27/18 10:48 Dose: 5 mg Aspirin (Aspirin Chewable) 81 mg PO DAILY [facility] Last Admin: 08/27/18 10:48 Dose: 81 mg Meclizine HCl (Antivert) 25 mg PO Q8H [facility] Last Admin: 08/27/18 18:35 Dose: 25 mg - Labs Labs: 08/25/18 09:05 08/25/18 09:05 - Constitutional Appears: Non-toxic, No Acute Distress - Head Exam Head Exam: NORMOCEPHALIC - Eye Exam Eye Exam: Normal appearance - ENT Exam ENT Exam: Mucous Membranes Dry - Respiratory Exam Respiratory Exam: Decreased Breath Sounds, Clear to Ausculation Bilateral, NORMAL BREATHING PATTERN - Cardiovascular Exam Cardiovascular Exam: REGULAR RHYTHM, +S1, +S2 - GI/Abdominal Exam GI & Abdominal Exam: Soft, Normal Bowel Sounds - Extremities Exam Extremities Exam: Normal Capillary Refill Additional comments: left knee swelling better - Neurological Exam Neurological Exam: Alert, Awake, Oriented x3 - Psychiatric Exam Psychiatric exam: Normal Affect, Normal Mood - Skin Skin Exam: Dry, Normal Color, Warm Assessment and Plan - Assessment and Plan (Free Text) Assessment: An 88 year old female who came in to the ER due to dizziness off and on for about a week and a half. She complains of knee pain. Denies chest pain or shortness of breath. History of hypertension, aortic valve replacement, CHF, and Afib, GERD, dizziness, right hip replacement,hysterectomy,cholecystectomy, left eye surgery. Orthostatic vital signs ,ECHO done -Left ventricle normal size, LVEF 65-70%, no vegetation on bioprosthetic aortic valve, Mild MR, Mild TR RVSP45 mmHg, no pericardial effusion. Previous cardiac work up at [facility] [place] 06/07/13- Normal stress test LVEF 76 % 07/12/15-ECHO -LVEF 65-70%, no vegetations on prosthetic aortic valve A Plan: Orthostatic vital signs, Lying BP 153/76 Sitting BP 136/85 Standing BP 140/75 Orthosthatic vital signs positive,BP okay,not that low. Instructed to pause/rest in between gradual change of position especially from sitting to standing. Complaints of dizziness when walking Denies chest pain Denies shortness of breath Heart rate and blood pressure controlled On Norvasc 5 mg daily,ASA 81 mg daily,Antivert 25 mg every 8 hours Continue current treatment Continue current medications Chart reviewed Will follow up Plan and treatment discussed with Dr. Jerald Helms
--- NOTE | 2018-08-28 10:31 | PN ---
DATE: 08/28/2018 REASON FOR THE CONSULTATION AND FOLLOWUP: Dizziness, status post aortic valve replacement, atrial fibrillation. SUBJECTIVE: The patient feels a lot better; orthostatic was changed, mild orthostasis noted, on lying 153, sitting 136, standing 140. The patient is asymptomatic. Continue baby aspirin, continue Norvasc. Discussed with the patient yesterday and informed the family that avoid sudden change in position, give herself time especially to wake up in the morning to sit at the bedside before going to the bathroom, avoid rapid movement. The patient had echo that showed preserved LV function dated 08/26/2018, showed ejection fraction 65% to 70%, no vegetation. Mild mitral and mild tricuspid regurgitation, RV systolic pressure of 45. Continue treatment and possible discharge to home today. Discussed with Dr. Gambino yesterday. Ciara Marques MD
--- NOTE | 2018-08-28 11:00 | CP.PCM.PN ---
Subjective - Date & Time of Evaluation Date of Evaluation: 08/28/18 Time of Evaluation: 10:58 - Subjective Subjective: Pt awake, alert. States she feels "much better" after injection. L knee: no effusion good ROM without pain 5/5 strength in all muscle groups NVI distally continue current care recommend walker for ambulation Pt can f/u as outpatient Objective - Vital Signs/Intake and Output Vital Signs (last 24 hours): Temp Pulse Resp BP Pulse Ox 97.7 F 79 18 147/88 96 08/28/18 08:25 08/28/18 10:48 08/28/18 08:25 08/28/18 10:48 08/28/18 08:25 Intake and Output: 08/28/18 08/28/18 06:59 18:59 Intake Total 120 Balance 120 - Medications Medications: Current Medications Amlodipine Besylate (Norvasc) 5 mg PO DAILY [facility] Last Admin: 08/28/18 10:48 Dose: 5 mg Aspirin (Aspirin Chewable) 81 mg PO DAILY [facility] Last Admin: 08/28/18 10:48 Dose: 81 mg Meclizine HCl (Antivert) 25 mg PO Q8H [facility] Last Admin: 08/28/18 10:48 Dose: 25 mg - Labs Labs: 08/25/18 09:05 08/25/18 09:05
--- NOTE | 2018-08-28 12:39 | PN ---
DATE: 08/28/2018 SUBJECTIVE: An 88-year-old female sitting in the chair this morning. She states that she is still feeling unsteady on her feet with some sense of lightheadedness and dizziness. PHYSICAL EXAMINATION: VITAL SIGNS: Her vital signs show a temperature of 97.7, blood pressure is 147/88, respiratory rate is 18, oxygen sat is 96% on room air. NECK: Supple. LUNGS: Clear. HEART: S1, S2, regular. ABDOMEN: Soft. Positive bowel sounds. EXTREMITIES: No evidence of edema. The patient is currently on Antivert, Ecotrin and Norvasc. The patient is being followed by Orthopedics, Cardiology and Neurology. She is working with physical therapy. We will continue to monitor the patient at this time as she feels unsteady and unable to go home. Elsa Gambino MD
--- NOTE | 2018-08-29 08:39 | CP.PCM.PN ---
Subjective - Date & Time of Evaluation Date of Evaluation: 08/29/18 Time of Evaluation: 06:50 - Subjective Subjective: Awake, alert, feels better,denies dizziness Reason for consultation: Cardiac evaluation of dizziness, history of hypertension, aortic valve replacement, CHF, and Afib, Seen and examined by me and Dr. Marques Objective - Vital Signs/Intake and Output Vital Signs (last 24 hours): Temp Pulse Resp BP Pulse Ox 97.9 F 85 18 131/87 97 08/29/18 08:17 08/29/18 08:17 08/29/18 08:17 08/29/18 08:17 08/29/18 08:17 Intake and Output: 08/29/18 08/29/18 06:59 18:59 Intake Total 180 Balance 180 - Medications Medications: Current Medications Amlodipine Besylate (Norvasc) 5 mg PO DAILY [facility] Last Admin: 08/28/18 10:48 Dose: 5 mg Aspirin (Aspirin Chewable) 81 mg PO DAILY [facility] Last Admin: 08/28/18 10:48 Dose: 81 mg Meclizine HCl (Antivert) 25 mg PO Q8H [facility] Last Admin: 08/29/18 03:55 Dose: Not Given - Labs Labs: 08/25/18 09:05 08/25/18 09:05 - Constitutional Appears: Non-toxic, No Acute Distress - Head Exam Head Exam: NORMAL INSPECTION, NORMOCEPHALIC - Eye Exam Eye Exam: Normal appearance - ENT Exam ENT Exam: Mucous Membranes Moist - Respiratory Exam Respiratory Exam: Clear to Ausculation Bilateral, NORMAL BREATHING PATTERN - Cardiovascular Exam Cardiovascular Exam: +S1, +S2 - GI/Abdominal Exam GI & Abdominal Exam: Soft, Normal Bowel Sounds - Extremities Exam Extremities Exam: Normal Capillary Refill Additional comments: left knee swelling better,less pain - Neurological Exam Neurological Exam: Alert, Awake, Oriented x3 - Psychiatric Exam Psychiatric exam: Normal Affect, Normal Mood - Skin Skin Exam: Intact, Normal Color, Warm Assessment and Plan - Assessment and Plan (Free Text) Assessment: An 88 year old female who came in to the ER due to dizziness off and on for about a week and a half. She complains of knee pain. Denies chest pain or shortness of breath. History of hypertension, aortic valve replacement, CHF, and Afib, GERD, dizziness, right hip replacement,hysterectomy,cholecystectomy, left eye surgery. Orthostatic vital signs ,ECHO done -Left ventricle normal size, LVEF 65-70%, no vegetation on bioprosthetic aortic valve, Mild MR, Mild TR RVSP45 mmHg, no pericardial effusion.Orthostatic vital signs, Lying BP 153/76 Sitting BP 136/85,Standing BP 140/75,Orthosthatic vital signs positive, BP okay ,not that low. Instructed to pause/rest in between gradual change of position especially from sitting to standing.Symptoms clinically improved. Plan: Clinically improved, May discharge from cardiac standpoint Instructed to pause/rest in between gradual change of position especially from sitting to standing. (postural hypotension) Denies chest pain Denies shortness of breath Heart rate and blood pressure controlled On Norvasc 5 mg daily,ASA 81 mg daily,Antivert 25 mg every 8 hours Continue current treatment Continue current medications Chart reviewed Will follow up Plan and treatment discussed with Dr. Marques
--- NOTE | 2018-08-29 14:33 | PN ---
DATE: 08/29/2018 REASON FOR CONSULTATION AND FOLLOWUP: Dizziness; history of paroxysmal atrial fibrillation, now sinus; history of aortic valve replacement. SUBJECTIVE: The patient is stable. Denies any chest pain, shortness of breath, or any palpitations. RECOMMENDATIONS: Continue baby aspirin. Continue Norvasc. The patient is on Antivert. Ambulate. Instructions given, explaining the patient not to change body position suddenly and give herself time getting out of the bed. The patient is possible discharge home today. CVS status is stable. The patient is okay to be discharged from cardiology point of view. Ciara Marques MD
--- NOTE | 2018-08-29 20:15 | PN ---
DATE: 08/29/2018 PHYSICAL EXAMINATION: VITAL SIGNS: Temperature is 97.9, pulse is 85, blood pressure is 131/87, respiratory rate is 18, oxygen saturation 97% on room air. LUNGS: Clear. HEART: Has an S1 and S2 rhythm. ABDOMEN: Soft with positive bowel sounds. EXTREMITIES: Show no evidence of edema. 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 She is also being followed by Neurology for her vertigo and by Cardiology. She was seen by Orthopedics with injection of the left knee with recommendation for surgery. The patient will consider this. Continue current level of care at this time. Her current medications consist of meclizine 25 mg every 8 hours, Ecotrin 81 mg, daily and Norvasc 5 mg daily. Elsa Gambino MD
--- NOTE | 2018-08-30 09:31 | CP.PCM.PN ---
Subjective - Date & Time of Evaluation Date of Evaluation: 08/30/18 Time of Evaluation: 06:55 - Subjective Subjective: Lying in bed, no distress, awake, alert, feels better,denies dizziness Reason for consultation: Cardiac evaluation of dizziness, history of hypertension, aortic valve replacement, CHF, and Afib, Seen and examined by me and Dr. Marques Objective - Vital Signs/Intake and Output Vital Signs (last 24 hours): Temp Pulse Resp BP Pulse Ox 97.9 F 85 16 135/87 97 08/30/18 08:34 08/30/18 08:34 08/30/18 08:34 08/30/18 08:34 08/30/18 08:34 - Medications Medications: Current Medications Amlodipine Besylate (Norvasc) 5 mg PO DAILY [facility] Last Admin: 08/29/18 09:52 Dose: 5 mg Aspirin (Aspirin Chewable) 81 mg PO DAILY [facility] Last Admin: 08/29/18 09:53 Dose: 81 mg Meclizine HCl (Antivert) 25 mg PO Q8H [facility] Last Admin: 08/30/18 03:20 Dose: 25 mg - Labs Labs: 08/25/18 09:05 08/25/18 09:05 - Constitutional Appears: Non-toxic, No Acute Distress - Eye Exam Eye Exam: Normal appearance - ENT Exam ENT Exam: Mucous Membranes Moist, Normal Exam - Respiratory Exam Respiratory Exam: Clear to Ausculation Bilateral, NORMAL BREATHING PATTERN - Cardiovascular Exam Cardiovascular Exam: +S1, +S2 - GI/Abdominal Exam GI & Abdominal Exam: Soft, Normal Bowel Sounds - Extremities Exam Additional comments: less swelling left knee - Neurological Exam Neurological Exam: Alert, Awake, Oriented x3 - Psychiatric Exam Psychiatric exam: Normal Affect, Normal Mood - Skin Skin Exam: Intact, Normal Color, Warm Assessment and Plan - Assessment and Plan (Free Text) Assessment: An 88 year old female who came in to the ER due to dizziness off and on for abo ut a week and a half. She complains of knee pain. Denies chest pain or shortness of breath. History of hypertension, aortic valve replacement, CHF, and Afib, GERD, dizziness, right hip replacement,hysterectomy,cholecystectomy, left eye surgery. Orthostatic vital signs ,ECHO done -Left ventricle normal size, LVEF 65-70%, no vegetation on bioprosthetic aortic valve, Mild MR, Mild TR RVSP45 mmHg, no pericardial effusion.Orthostatic vital signs, Lying BP 153/76 Sitting BP 136/85,Standing BP 140/75,Orthosthatic vital signs positive, BP okay,not that low. Instructed to pause/rest in between gradual change of position especially from sitting to standing.Symptoms clinically improved. Plan: Denies chest pain Denies shortness of breath Heart rate and blood pressure controlled Cardiac status stable Clinically improved, physical therapy for gait Instructed to pause/rest in between gradual change of position especially from sitting to standing. (postural hypotension) On Norvasc 5 mg daily,ASA 81 mg daily,Antivert 25 mg every 8 hours Continue current treatment Continue current medications Physical therapy May discharge from cardiac standpoint Chart reviewed Will follow up Plan and treatment discussed with Dr. Marques
[2018-08-30 11:07] LABS: BASO % 0.2 % (0.0-3.0); EOS # 0.1 (0.0-0.7); GRAN # 6.56 (1.4-6.5); LYMPH # 1.8 (1.2-3.4); LYMPH % 19.7 % (22.0-35.0); MEAN CELL VOLUME 94.8 fl (80.0-105.0); MEAN CORPUSCULAR HEMOGLOBIN 31.3 pg (25.0-35.0); MEAN CORPUSCULAR HGB CONC 33.1 g/dl (31.0-37.0); MONO # 0.9 (0.1-0.6); MONO % 9.1 % (1.0-6.0); RBC 3.83 10^6/uL (3.5-6.1); WHITE BLOOD COUNT 9.4 10^3/ul (4.5-11.0)
[2018-08-30 11:08] LABS: BASO # 0.02 K/mm3 (0.0-2.0)
[2018-08-30 11:19] LABS: ALB/GLOB RATIO 1.3 (1.1-1.8); ALBUMIN 3.8 g/dL (3.0-4.8); ALT/SGPT 35 U/L (7-56); AST/SGOT 29 U/L (14-36); BLOOD UREA NITROGEN 25 mg/dL (7-21); GFR NON-AFRICAN AMERICAN 59
--- NOTE | 2018-08-30 12:20 | PN ---
DATE: 08/30/2018 SUBJECTIVE: An 88-year-old female, resting in bed this morning. She states that she is having some mild abdominal pain. She states that she did move her bowels this morning, but it was a little hard. She has no nausea or vomiting. PHYSICAL EXAMINATION: VITAL SIGNS: Her temp is 97.9, her pulse is 85, her blood pressure is 135/87, respiratory rate is 16, oxygen saturation is 97% on room air. GENERAL: She is alert and oriented x3. LUNGS: Clear. HEART: S1 and S2 rhythm. ABDOMEN: Soft. No rebound. EXTREMITIES: Show no evidence of edema. ASSESSMENT AND PLAN: The patient was admitted with vertigo, being placed on Antivert by Neurology. She is also seen by Cardiology and at the same time, she was seen by Orthopedics for left knee degenerative arthritis. She has a past medical history of gastritis and gastroesophageal reflux disease. The patient will get started on proton pump inhibitor, get a GI consult and follow up with the patient's labs. Elsa Gambino MD
--- NOTE | 2018-08-30 14:00 | CP.PCM.CON ---
<Michel Maddox - Last Filed: 08/30/18 13:51> History of Present Illness - History of Present Illness History of Present Illness: GI fellow PGY4, Consult note. Yaritza Gonzalez is a very pleasant 88F who has been in the hospital for several days now originally for dizziness and ataxia. GI consulted for hx of GERD and current epigastric pain. Patient takes Zantac at home regularly but hasn't been taking since in the hospital. Her current epigastric pains is mild and feel similar to previous episodes of GERD related symptoms. She was started on H2 jarrett today and is already feeling better. She denies significant weight loss, dysphagia, blood in stool, vomiting, constipation, diarrhea. 12pt ROS completed and negative except for above. Past Patient History - Infectious Disease Hx of Infectious Diseases: None - Tetanus Immunizations Tetanus Immunization: Up to Date - Past Social History Smoking Status: Never Smoked - CARDIAC Hx Cardiac Disorders: Yes Hx Congestive Heart Failure: Yes Hx Hypertension: Yes - PULMONARY Hx Respiratory Disorders: No - NEUROLOGICAL Hx Neurological Disorder: No - HEENT Hx HEENT Problems: Yes Other/Comment: left eye surgery - RENAL Hx Chronic Kidney Disease: No - ENDOCRINE/METABOLIC Hx Endocrine Disorders: No - HEMATOLOGICAL/ONCOLOGICAL Hx Blood Disorders: No - INTEGUMENTARY Hx Dermatological Problems: No - MUSCULOSKELETAL/RHEUMATOLOGICAL Hx Musculoskeletal Disorders: Yes Hx Falls: Yes Other/Comment: right hip replacement - GASTROINTESTINAL Hx Gastrointestinal Disorders: No - GENITOURINARY/GYNECOLOGICAL Hx Genitourinary Disorders: Yes Other/Comment: hsterectomy - PSYCHIATRIC Hx Psychophysiologic Disorder: No - SURGICAL HISTORY Hx Surgeries: Yes Hx Cholecystectomy: Yes - ANESTHESIA Hx Anesthesia: Yes Hx Anesthesia Reactions: No Hx Malignant Hyperthermia: No Meds Allergies/Adverse Reactions: Allergies Allergy/AdvReac Type Severity Reaction Status Date / Time iodine Allergy RASH Verified 08/25/18 08:44 IV contrast Allergy RASH Uncoded 08/25/18 08:44 - Medications Medications: Current Medications Amlodipine Besylate (Norvasc) 5 mg PO DAILY [facility] Last Admin: 08/30/18 09:36 Dose: 5 mg Aspirin (Aspirin Chewable) 81 mg PO DAILY [facility] Last Admin: 08/30/18 09:36 Dose: 81 mg Famotidine (Pepcid) 20 mg PO 1000,2200 [facility] Meclizine HCl (Antivert) 25 mg PO Q8H [facility] Last Admin: 08/30/18 11:20 Dose: 25 mg Physical Exam - Constitutional Appears: Well, Non-toxic, No Acute Distress - Eye Exam Eye Exam: Normal appearance - ENT Exam ENT Exam: Mucous Membranes Moist - Respiratory Exam Respiratory Exam: Clear to Auscultation Bilateral, NORMAL BREATHING PATTERN - Cardiovascular Exam Cardiovascular Exam: REGULAR RHYTHM, +S1, +S2 - GI/Abdominal Exam GI & Abdominal Exam: Normal Bowel Sounds, Soft. absent: Tenderness - Extremities Exam Extremities exam: Positive for: normal inspection - Neurological Exam Neurological exam: CN II-XII Intact, Oriented x3 - Psychiatric Exam Psychiatric exam: Normal Affect, Normal Mood Results - Vital Signs Recent Vital Signs: Last Vital Signs Temp 97.9 F 08/30/18 08:34 Pulse 85 08/30/18 09:36 Resp 16 08/30/18 08:34 BP 121/70 08/30/18 09:36 Pulse Ox 97 08/30/18 08:34 - Labs Result Diagrams: 08/30/18 10:50 08/30/18 10:50 Labs: Laboratory Results - last 24 hr 08/30/18 08/30/18 10:50 10:50 WBC 9.4 RBC 3.83 Hgb 12.0 Hct 36.3 MCV 94.8 MCH 31.3 MCHC 33.1 RDW 13.0 Plt Count 216 MPV 10.0 Gran % 70.0 H Lymph % (Auto) 19.7 L [place] % (Auto) 9.1 H Eos % (Auto) 1.0 L Baso % (Auto) 0.2 Gran # 6.56 H Lymph # (Auto) 1.8 [place] # (Auto) 0.9 H Eos # (Auto) 0.1 Baso # (Auto) 0.02 Sodium 136 Potassium 4.4 Chloride 98 Carbon Dioxide 31 Anion Gap 11 BUN 25 H Creatinine 0.9 Est GFR ( Amer) > 60 Est GFR (Non-Af Amer) 59 Random Glucose 90 Calcium 9.0 Total Bilirubin 0.8 AST 29 ALT 35 Alkaline Phosphatase 80 Total Protein 6.8 Albumin 3.8 Globulin 3.0 Albumin/Globulin Ratio 1.3 Assessment & Plan - Assessment and Plan (Free Text) Assessment: #Dyspepsia Plan: -Continue H2 jarrett. I will give 1 dose off PPI to evaluated for improvement. -No planned endoscopic procedures -Patient can be discharge from GI perspective - Date & Time Date: 08/30/18 Time: 14:02 <Penny Zaidi V - Last Filed: 08/30/18 21:38> Meds - Medications Medications: Current Medications Amlodipine Besylate (Norvasc) 5 mg PO DAILY [facility] Last Admin: 08/30/18 09:36 Dose: 5 mg Aspirin (Aspirin Chewable) 81 mg PO DAILY [facility] Last Admin: 08/30/18 09:36 Dose: 81 mg Famotidine (Pepcid) 20 mg PO 1000,2200 [facility] Meclizine HCl (Antivert) 25 mg PO Q8H [facility] Last Admin: 08/30/18 11:20 Dose: 25 mg Results - Vital Signs Recent Vital Signs: Last Vital Signs Temp 98 F 08/30/18 14:00 Pulse 83 08/30/18 14:00 Resp 14 08/30/18 14:00 BP 112/67 08/30/18 14:00 Pulse Ox 97 08/30/18 14:00 - Labs Result Diagrams: 08/30/18 10:50 08/30/18 10:50 Labs: Laboratory Results - last 24 hr 08/30/18 08/30/18 10:50 10:50 WBC 9.4 RBC 3.83 Hgb 12.0 Hct 36.3 MCV 94.8 MCH 31.3 MCHC 33.1 RDW 13.0 Plt Count 216 MPV 10.0 Gran % 70.0 H Lymph % (Auto) 19.7 L [place] % (Auto) 9.1 H Eos % (Auto) 1.0 L Baso % (Auto) 0.2 Gran # 6.56 H Lymph # (Auto) 1.8 [place] # (Auto) 0.9 H Eos # (Auto) 0.1 Baso # (Auto) 0.02 Sodium 136 Potassium 4.4 Chloride 98 Carbon Dioxide 31 Anion Gap 11 BUN 25 H Creatinine 0.9 Est GFR ( Amer) > 60 Est GFR (Non-Af Amer) 59 Random Glucose 90 Calcium 9.0 Total Bilirubin 0.8 AST 29 ALT 35 Alkaline Phosphatase 80 Total Protein 6.8 Albumin 3.8 Globulin 3.0 Albumin/Globulin Ratio 1.3 Attending/Attestation - Attestation I have personally seen and examined this patient.: Yes I have fully participated in the care of the patient.: Yes I have reviewed all pertinent clinical information: Yes Notes (Text): This is an addendum to GI consult report dictated by the GI Fellow.The patient was seen and examined earlier. Medical records, lab studies, imagings were reviewed. Last 24 hours events reviewed. Agreed with the above treatment plan as outlined in GI Fellow 's notes with the addition of the following This patient did complain of some epigastric discomfort earlier Patient has been on zantac at home Previous GI workup was reviewed sp cholecystectomy Status post EGD colonoscopy in 2014 On examination abdomen soft non tender On Pepcid Will followup clinically If dyspeptic symptoms persist or reoccurs would consider changing to PPI 08/30/18 21:36
[2018-08-30] MEDS ORDERED: Pantoprazole 40 mg EC Tab PO ONE (14:04)
--- NOTE | 2018-08-31 07:09 | CP.PCM.PN ---
Subjective - Date & Time of Evaluation Date of Evaluation: 08/31/18 Time of Evaluation: 06:25 - Subjective Subjective: Lying in bed, no distress, awake, alert, feels better Reason for consultation: Cardiac evaluation of dizziness, history of hypertensio n, aortic valve replacement, CHF, and Afib, Seen and examined by me and Dr. Marques Objective - Vital Signs/Intake and Output Vital Signs (last 24 hours): Temp Pulse Resp BP Pulse Ox 98 F 83 14 112/67 97 08/30/18 14:00 08/30/18 14:00 08/30/18 14:00 08/30/18 14:00 08/30/18 14:00 - Medications Medications: Current Medications Amlodipine Besylate (Norvasc) 5 mg PO DAILY [facility] Last Admin: 08/30/18 09:36 Dose: 5 mg Aspirin (Aspirin Chewable) 81 mg PO DAILY [facility] Last Admin: 08/30/18 09:36 Dose: 81 mg Famotidine (Pepcid) 20 mg PO 1000,2200 [facility] Last Admin: 08/30/18 23:02 Dose: 20 mg Meclizine HCl (Antivert) 25 mg PO Q8H [facility] Last Admin: 08/30/18 21:43 Dose: 25 mg - Labs Labs: 08/30/18 10:50 08/30/18 10:50 - Constitutional Appears: Non-toxic, No Acute Distress - Head Exam Head Exam: NORMAL INSPECTION, NORMOCEPHALIC - Eye Exam Eye Exam: Normal appearance - ENT Exam ENT Exam: Mucous Membranes Moist - Respiratory Exam Respiratory Exam: Clear to Ausculation Bilateral, NORMAL BREATHING PATTERN - Cardiovascular Exam Cardiovascular Exam: +S1, +S2 - GI/Abdominal Exam GI & Abdominal Exam: Soft, Normal Bowel Sounds - Extremities Exam Extremities Exam: Normal Capillary Refill Additional comments: left knee less swelling, less pain - Neurological Exam Neurological Exam: Alert, Awake, Oriented x3 - Psychiatric Exam Psychiatric exam: Normal Affect, Normal Mood - Skin Skin Exam: Dry, Intact, Normal Color, Warm Assessment and Plan - Assessment and Plan (Free Text) Assessment: An 88 year old female who came in to the ER due to dizziness off and on for about a week and a half. She complains of knee pain. Denies chest pain or shortness of breath. History of hypertension, aortic valve replacement, CHF, and Afib, GERD, dizziness, right hip replacement,hysterectomy,cholecystectomy, left eye surgery. Orthostatic vital signs ,ECHO done -Left ventricle normal size, LVEF 65-70%, no vegetation on bioprosthetic aortic valve, Mild MR, Mild TR RVSP45 mmHg, no pericardial effusion.Orthostatic vital signs, Lying BP 153/76 Sitting BP 136/85,Standing BP 140/75,Orthosthatic vital signs positive, BP okay,not that low. Instructed to pause/rest in between gradual change of position especially from sitting to standing.Symptoms clinically improved.Seen by GI for abdominal pain,history of GERD, given Pepcid with relief.No further w ork up as per GI. Plan: Clinically improved. Denies chest pain,Denies shortness of breath Heart rate and blood pressure controlled Cardiac status stable Seen by GI for abdominal pain, restarted on Pepcid with relief. No further workup as per GI. On Norvasc 5 mg daily,ASA 81 mg daily,Antivert 25 mg every 8 hours Continue current treatment Continue current medications Physical therapy May discharge from cardiac standpoint Chart reviewed Will follow up Plan and treatment discussed with Dr. Marques
[2018-08-31 07:58] VITALS: BP 122/77; PULSE 77; RESP 21; TEMP 86.6; O2SAT 96
--- NOTE | 2018-08-31 09:12 | PN ---
DATE: 08/30/2018 This note is in addition to the note dictated by our nurse practitioner, Val Thompson. REASON FOR ADMISSION: Atrial fibrillation, paroxysmal; aortic stenosis; admitted with dizziness. The patient feels stable now, on aspirin, Plavix. Stable hemodynamically. Okay to be discharged from cardiology point of view. Instruction given to the patient not to change rapid movement on the posture. Upon discharge, we will follow with you. Discussed with the family member also. Today, lab is essentially within the normal limit. SMA-7 and CBC are essentially within normal limit. Thank you, Dr. Gambino, for providing us the opportunity in taking care of the patient, Yaritza Gonzalez. Ciara Marques MD
--- NOTE | 2018-08-31 14:25 | CP.PCM.PN ---
<Shar Be - Last Filed: 08/31/18 14:15> Subjective - Date & Time of Evaluation Date of Evaluation: 08/31/18 Time of Evaluation: 14:15 - Subjective Subjective: GI PROGRESS NOTE FOR DR. DIDI BAH PGY2 Patient seen and examined this AM. No acute events reported overnight. Patient reporting improved symptoms since starting zantac. Objective - Vital Signs/Intake and Output Vital Signs (last 24 hours): Temp Pulse Resp BP Pulse Ox 86.6 F L 77 21 122/77 96 08/31/18 07:57 08/31/18 07:57 08/31/18 07:57 08/31/18 07:57 08/31/18 07:57 - Medications Medications: Current Medications Amlodipine Besylate (Norvasc) 5 mg PO DAILY [facility] Last Admin: 08/31/18 09:43 Dose: 5 mg Aspirin (Aspirin Chewable) 81 mg PO DAILY [facility] Last Admin: 08/31/18 09:43 Dose: 81 mg Famotidine (Pepcid) 20 mg PO 1000,2200 [facility] Last Admin: 08/31/18 09:43 Dose: 20 mg Meclizine HCl (Antivert) 25 mg PO Q8H [facility] Last Admin: 08/30/18 21:43 Dose: 25 mg - Labs Labs: 08/30/18 10:50 08/30/18 10:50 - Constitutional Appears: No Acute Distress - Head Exam Head Exam: ATRAUMATIC, NORMOCEPHALIC - Eye Exam Eye Exam: EOMI, PERRL - ENT Exam ENT Exam: Mucous Membranes Moist - Respiratory Exam Respiratory Exam: NORMAL BREATHING PATTERN - Cardiovascular Exam Cardiovascular Exam: REGULAR RHYTHM - GI/Abdominal Exam GI & Abdominal Exam: Soft, Normal Bowel Sounds. absent: Rigid, Tenderness - Extremities Exam Extremities Exam: Normal Inspection - Back Exam Back Exam: NORMAL INSPECTION - Neurological Exam Neurological Exam: Alert, Awake, Oriented x3 Neuro motor strength exam: Left Upper Extremity: 5, Right Upper Extremity: 5, Left Lower Extremity: 5, Right Lower Extremity: 5 - Psychiatric Exam Psychiatric exam: Normal Affect, Normal Mood - Skin Skin Exam: Dry, Intact Assessment and Plan - Assessment and Plan (Free Text) Plan: Dyspepsia -Continue H2 jarrett therapy -No plan for endoscopic procedures at this time -Patient can be discharged from GI perspective <Penny Zaidi V - Last Filed: 08/31/18 19:54> Objective - Vital Signs/Intake and Output Vital Signs (last 24 hours): Temp Pulse Resp BP Pulse Ox 86.6 F L 77 21 122/77 96 08/31/18 07:57 08/31/18 07:57 08/31/18 07:57 08/31/18 07:57 08/31/18 07:57 - Labs Labs: 08/30/18 10:50 08/30/18 10:50 Attending/Attestation - Attestation I have personally seen and examined this patient.: Yes I have fully participated in the care of the patient.: Yes I have reviewed all pertinent clinical information, including history, physical exam and plan: Yes Notes (Text): This is an addendum to GI followup report dictated by the Salvage Machine Operator. The patient was seen and evaluated earlier. Medical records, lab studies, imagings were reviewed. Last 24 hours events reviewed. Agreed with the above treatment plan as outlined in Salvage Machine Operator 's notes with the addition of the following Patient feeling better no complaints of abdominal pain Continue H2B No further GI workup planned now Discussed with Dr. Gambino 08/31/18 19:53
--- NOTE | 2018-09-01 00:46 | DS ---
HISTORY OF PRESENT ILLNESS: This is an 88-year-old female, who presented to [facility] because of difficulty walking and lightheadedness. While in the hospital, she was seen by Cardiology, Orthopedics, Neurology. She was found to have vertigo, placed on Antivert. Cardiology continued her cardiac medications with her . She was also seen by GI for GI upset, was placed back on her PPI therapy. She would be followed at home as an outpatient with recommendations for physical therapy. She has a left knee which she was recommended that she have a total knee replacement. The patient to decide as an outpatient. While she was in the hospital, she had the knee injected by Dr. Price. She will be on Antivert 25 mg every 8, Ecotrin 81 mg daily, Norvasc 5 mg daily and Zantac as an outpatient. Elsa Gambino MD
--- NOTE | 2018-09-01 08:30 | PN ---
DATE: 08/31/2018 This note is an addendum to initial progress note dictated by the nurse practitioner. SUBJECTIVE: The patient denies any chest pain, shortness of breath or any palpitation. History of paroxysmal atrial fibrillation, now normal sinus; history of severe aortic stenosis, status post AVR, status post ANDERS, cardioversion in the past. Admitted with generalized weakness and dizziness. The patient feels okay. Getting rehab. CVS status is stable. Continue baby aspirin. Continue rehab. Continue Norvasc. No further cardiac workup is warranted or ordered. Last echo the patient had on 08/26/2018 showed preserved LV function, ejection fraction 55-70%. No vegetation. 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 Mild mitral regurgitation, mild tricuspid regurgitation. RV systolic pressure 45. We will sign off and glad to follow up p.r.n. Thank you, Dr. Gambino for providing us the opportunity in taking care of the patient, Yaritza Gonzalez. We will follow pWilliamrrafia. Ciara Marques MD
== END 2018-08-31 14:38 | disposition home health service (06) | DRG 149 ==
LOC: ED 08:32 → ERH 09:12 → 5RSO 16:45
PROVIDERS: ADMIT Internal Medicine; ATTEND Internal Medicine
PROC: 3E0U33Z Introduction of Anti-inflammatory into Joints, Percutaneous Approach (ICD-10-PCS; principal; 2018-08-26)
PROC: 3E0U3BZ Introduction of Anesthetic Agent into Joints, Percutaneous Approach (ICD-10-PCS; 2018-08-26)
DX: R42 Dizziness and giddiness (principal); M17.12 Unilateral primary osteoarthritis, left knee; R27.0 Ataxia, unspecified; I11.0 Hypertensive heart disease with heart failure; I50.9 Heart failure, unspecified; I08.1 Rheumatic disorders of both mitral and tricuspid valves; I48.0 Paroxysmal atrial fibrillation; K21.9 Gastro-esophageal reflux disease without esophagitis; R10.13 Epigastric pain; R53.1 Weakness; R29.6 Repeated falls; Z96.641 Presence of right artificial hip joint; Z95.2 Presence of prosthetic heart valve